=== PATIENT | female | born 1990 | race African-American/Black ===

== ENCOUNTER 2021-10-03 01:45 | Inpatient (IN) | payer BC ==
[2021-10-03] MEDS ORDERED: DEXTROSE 5%-LACTATED RINGERS 1,000 ML IV SCH (02:50)
[2021-10-03] MEDS ORDERED: BUTORPHANOL TARTRATE 1 MG/ML VIAL IVPB ONE (03:50)
[2021-10-03] MEDS ORDERED: PROMETHAZINE HCL 25 MG/1 ML VIAL IVPB ONE (03:50)
[2021-10-03] MEDS ORDERED: BUTORPHANOL TARTRATE 2 MG/ML VIAL ONE (03:53)
[2021-10-03] MEDS ORDERED: PROMETHAZINE HCL 25 MG/1 ML VIAL ONE (03:53)
[2021-10-03 04:03] LABS: BASO % 0.3 % (0-2.0); EOS % 0.4 % (0-4.5); HEMATOCRIT 32.4 % (32.4-45.2); HEMOGLOBIN 10.6 GM/dL (10.7-15.3); LYMPH % 16.3 % (8-40); MCH 25.2 pg (25.7-33.7); MCHC 32.6 g/dl (32.0-36.0); MEAN CELL VOLUME 77.2 fl (80-96); MEAN PLT VOLUME 8.4 fl (7.5-11.1); MONO % 10.2 % (3.8-10.2); NEUT % 72.8 % (42.8-82.8); PLATELET COUNT 331 10^3/uL (134-434); RBC 4.19 M/mm3 (3.60-5.2); RDW 15.7 % (11.6-15.6); WHITE BLOOD COUNT 9.2 K/mm3 (4.0-10.0)
[2021-10-03 04:27] LABS: BLOOD UREA NITROGEN 13.6 mg/dL (7-18); CALCIUM 9.6 mg/dL (8.5-10.1)
[2021-10-03 04:28] LABS: INR 1.02 (0.83-1.09); PROTHROMBIN TIME (PATIENT) 11.7 SEC (9.7-13.0)
[2021-10-03 04:30] LABS: CREATININE 0.6 mg/dL (0.55-1.3)
[2021-10-03 04:49] VITALS: BMI 35.2
[2021-10-03] MEDS: ELECTROLYTE-148 SOLN 1,000 ML IV SCH ×2 (06:00→08:30)
[2021-10-03] MEDS ORDERED: FENTANYL/BUPIVACAINE/NS/PF - PCEA - 50 ML DISP.SYRIN EP ONE ×4 (06:11→14:09)
[2021-10-03 06:34] LABS: SYPHILIS W/ RPR CONF NON-REACTIVE (NONREACTIVE)
[2021-10-03] MEDS ORDERED: NALOXONE HCL 0.4 MG/ML VIAL IVPUSH PRN (07:01)
[2021-10-03 07:03] LABS: HIV INTERPRETATION NEGATIVE (NEGATIVE)
[2021-10-03] MEDS ORDERED: FENTANYL/BUPIVACAINE/NS/PF - PCEA - 50 ML DISP.SYRIN EP SCH (07:15)
[2021-10-03] MEDS: DEXTROSE 5%-LACTATED RINGERS 1,000 ML IV SCH (08:54)
[2021-10-03] MEDS ORDERED: OXYTOCIN 30 UNITS in 0.9% NS 30 UNIT/500 ML INFUS.BAG IVPB ONE (12:18)
[2021-10-03] MEDS: OXYTOCIN 30 UNITS in 0.9% NS 30 UNIT/500 ML INFUS.BAG IVPB SCH (12:30)
[2021-10-03] MEDS ORDERED: OXYTOCIN 20 UNITS in 0.9% NS 20 UNIT/1,000 ML INFUS.BAG IV ONE (14:45)
[2021-10-03] MEDS ORDERED: oxyCODONE HCL 5 MG TABLET PO PRN (16:25)
[2021-10-03] MEDS ORDERED: METHYLERGONOVINE MALEATE 0.2 MG/1 ML AMP IM PRN (16:25)
[2021-10-03] MEDS ORDERED: ACETAMINOPHEN 325 MG TABLET (FP) PO PRN (16:25)
[2021-10-03] MEDS ORDERED: WITCH HAZEL 50% (TUCKS) 40 PAD/JAR PAD TP PRN (16:25)
[2021-10-03] MEDS ORDERED: BENZOCAINE 28 GM HEMORRHOIDAL OINTMENT TP PRN (16:25)
[2021-10-03] MEDS ORDERED: BISACODYL 10 MG SUPP.RECT RC PRN (16:25)
[2021-10-03] MEDS ORDERED: BENZOCAINE 20% 57 GM BOTTLE TP PRN (16:25)
[2021-10-03] MEDS ORDERED: OXYTOCIN 20 UNITS in 0.9% NS 20 UNIT/1,000 ML INFUS.BAG IV SCH (16:30)
[2021-10-03] MEDS: IBUPROFEN 600 MG TABLET (FP) PO PRN (23:42)
[2021-10-04 08:13] LABS: BASO % 0.2 % (0-2.0); EOS % 0.5 % (0-4.5); HEMOGLOBIN 8.2 GM/dL (10.7-15.3); LYMPH % 15.7 % (8-40); MCH 25.2 pg (25.7-33.7); MCHC 32.6 g/dl (32.0-36.0); MEAN CELL VOLUME 77.5 fl (80-96); MEAN PLT VOLUME 7.9 fl (7.5-11.1); MONO % 10.6 % (3.8-10.2); PLATELET COUNT 254 10^3/uL (134-434); RBC 3.23 M/mm3 (3.60-5.2); RDW 15.3 % (11.6-15.6); WHITE BLOOD COUNT 14.3 K/mm3 (4.0-10.0)
[2021-10-04] MEDS: PRENATAL VITAMINS W/ FOLIC ACID TABLET (FP) PO SCH (11:46)
[2021-10-04] MEDS: IBUPROFEN 600 MG TABLET (FP) PO PRN (13:18)
[2021-10-04] MEDS: ELECTROLYTE-148 SOLN 1,000 ML IV SCH (18:44)
[2021-10-04] MEDS: DEXTROSE 5%-LACTATED RINGERS 1,000 ML IV SCH (18:44)
[2021-10-04] MEDS: OXYTOCIN 30 UNITS in 0.9% NS 30 UNIT/500 ML INFUS.BAG IVPB SCH (18:45)
[2021-10-04 21:41] VITALS: TEMP 97.6
[2021-10-04] MEDS ORDERED: SENNOSIDES/DOCUSATE COMBO (SENNA PLUS) TABLET (UD) PO PRN (22:00)
[2021-10-05] MEDS: PRENATAL VITAMINS W/ FOLIC ACID TABLET (FP) PO SCH (09:46)
[2021-10-05] MEDS: IBUPROFEN 600 MG TABLET (FP) PO PRN (09:46)
[2021-10-05 10:12] VITALS: BP 111/64; PULSE 85
== END 2021-10-05 13:25 | disposition home or self-care (01) | DRG 807 ==
LOC: JDEL 01:45 → JLDR 02:50 → J3W 18:00
PROVIDERS: ADMIT Obstetrics & Gynecology; ATTEND Obstetrics & Gynecology
PROC: 0HQ9XZZ Repair Perineum Skin, External Approach (ICD-10-PCS; principal; 2021-10-03)
PROC: 10E0XZZ Delivery of Products of Conception, External Approach (ICD-10-PCS; 2021-10-03)
DX: O70.0 First degree perineal laceration during delivery (principal); Z37.0 Single live birth; Z3A.37 37 weeks gestation of pregnancy
CPT/HCPCS: 36415; 59409; 80048; 85025; 85610; 85730; 86780; 86850; 86900; 86901; 87389; C9803-CS; U0003; U0005